=== PATIENT | male | born 1995 | race Asian ===

== ENCOUNTER 2025-05-23 19:39 | Emergency (ER) | payer BC ==
[~2025-05-23] VITALS: Ht 180.3 cm; Wt 99.8 kg
[2025-05-23 20:00] VITALS: TEMP 98.1
[2025-05-23 20:44] VITALS: BP 122/80; O2SAT 99
== END 2025-05-23 20:44 | disposition home or self-care (01) ==
LOC: ER 19:43
DX: S09.8XXA Other specified injuries of head, initial encounter (principal); W18.39XA Other fall on same level, initial encounter; Y93.67 Activity, basketball; Y92.89 Other specified places as the place of occurrence of the external cause; Y99.8 Other external cause status